=== PATIENT | male | born 1945 | race African-American/Black ===

== ENCOUNTER 2018-07-31 23:14 | Inpatient (IN) | payer OTHER ==
[~2018-07-31] VITALS: Ht 167.6 cm; Wt 68.0 kg
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
[2018-07-31 23:26] VITALS: BP 154/106
[2018-08-01 00:50] LABS: URINE BILIRUBIN NEGATIVE (Negative); URINE BLOOD NEGATIVE (Negative); URINE CLARITY CLEAR; URINE COLOR YELLOW; URINE GLUCOSE-RANDOM* NEGATIVE (Negative); URINE KETONES NEGATIVE (Negative); URINE LEUKOCYTES-REFLEX NEGATIVE (Negative); URINE NITRITE-REFLEX NEGATIVE (Negative); URINE PROTEIN (DIPSTICK) 2+ (Negative)
[2018-08-01 00:55] LABS: BACTERIA-REFLEX None Seen /HPF (None Seen); CASTS None Seen /LPF (None Seen); CRYSTALS None Seen /LPF (None Seen); MUCUS None Seen strn/LPF (None Seen); SQUAMOUS None Seen /LPF (0-3); URINE RBC None Seen /HPF (0-2); URINE WBC-REFLEX None Seen /HPF (0-5)
[2018-08-01 01:14] LABS: ABSOLUTE NEUTROPHILS 3.9 thou/uL (1.4-8.2); BASOPHILS 0.8 % (0.0-2.0); EOSINOPHILS 2.8 % (0.0-3.0); HEMATOCRIT 37.8 % (42.0-52.0); HEMOGLOBIN 12.6 gm/dL (14.0-18.0); MCHC 33.3 g/dL (28.0-37.0); MONOCYTES 4.7 % (1.0-8.0); PLATELET COUNT 158 thou/uL (150-400); POLYS 71.7 % (36.0-66.0); RBC 4.67 mil/uL (4.50-6.00); RDW 14.8 % (10.5-14.5); WBC 5.4 thou/uL (4.0-11.0)
[2018-08-01 01:28] LABS: ANION GAP 9 mmol/L (7-16); BUN 5 mg/dL (7-18); CALCIUM 8.9 mg/dL (8.5-10.1); CHLORIDE 106 mmol/L (98-107); CO2 30 mmol/L (21-32); CREATININE 0.9 mg/dL (0.7-1.3); GLUCOSE 130 mg/dL (74-106); POTASSIUM 3.3 mmol/L (3.5-5.1); SODIUM 145 mmol/L (136-145)
[2018-08-01 01:38] LABS: ALBUMIN 3.2 g/dL (3.4-5.0); DIRECT BILIRUBIN 0.3 mg/dL (<0.1-0.3); SGOT 13 U/L (15-37); SGPT 5 U/L (30-65); TOTAL BILIRUBIN 0.8 mg/dL (<0.1-1.0); TOTAL PROTEIN 6.8 g/dL (6.4-8.2); TROPONIN-I <0.06 ng/mL (<0.06)
--- NOTE | 2018-08-01 02:17 | NUR ---
PATIENT RETURNED FROM CT SCAN
[2018-08-01 03:28] VITALS: BP 150/72
[2018-08-01 04:05] VITALS: BP 176/56
[2018-08-01 04:42] VITALS: BP 131/71
--- NOTE | 2018-08-01 07:59 | NUR ---
PT WAS ADMITTED TO THE UNIT IN A FAIR CONDITION FROM THE ER.EDUCATION AND HX COMPLETED.MED REC NOT DONE.PT STATED THAT HE IS NOT ON ANY MED AND THAT HE HAS NOT BEEN TO A DOCTOR IN YEARS.PT WITH R SIDED WKNESS,LIKES FINGER FOOD.WOUNDS AND EXCORIATION ON HIS BOTTOM.IVF INFUSING ORDERED.AM NOTIFIED TO DO SKIN ASSESSMENT SINCE PT ARRIVED LATE TO THE UNIT.FALL PRECAUTIONS IN PLACE,CALL LIGHT WITHIN REACH.
--- NOTE | 2018-08-01 11:55 | EKG ---
[address] [address] ELECTROCARDIOGRAM REPORT Name: EWELINA JASSO Room #: 428-P ADM IN M.R.#: [id number] ������������������ Admission: 08/01/18 ������������������ Attend Phys: Armani Elizondo MD Discharge: ������������������ Date of : 44 Report #: [id number] ����������������������������������������������������������������� [id number] THIS REPORT FOR: //name// [facility] ED Test Date: 2018-08-01 Test Time: 00:18:30 Pat Name: EWELINA JASSO Department: Room: 428 Gender: M Electronics Department Manager: kenyetta esposito : 1945 Requested By: Juan Bates Order Number: [id number] MD: Kwesi Lewis Measurements Intervals [place] Rate: 76 P: [place]: QRS: -1 QRSD: 97 T: 259 QT: 520 QTc: 585 Interpretive Statements Sinus rhythm Nonspecific T-wave abnormalities Baseline wander in lead(s) V2 No previous ECG available for comparison Electronically Signed On 08-01-2018 11:54:52 CDT by Kwesi Lewis [email or web address] ��������������������������������������������� <ELECTRONICALLY SIGNED> ���������������������������������������� By: Kwesi Lewis MD ��������������������������������������������� 08/01/18 1154 0018 0018 MD NARENDRA Blair
[2018-08-01 19:51] VITALS: BP 141/66
--- NOTE | 2018-08-01 19:51 | NUR ---
WENT WITH DR MONTESINOS TO [facility]'S ROOM SHE LOOKED AT SKIN AND EXPLAINED ABOUT POLICE REPORT AND THAT CASE MANAGEMENT WOULD HELP HIM FIND PLACEMENT. PT WANTS TO GO BACK HOME. ORDERS INCLUDE QUOTE CLERK, PT OT, WOUND CARE PICTURES TAKEN. CONSULT DR BRANDO MONTESINOS EXPLAINED THAT CT OF CHEST SHOWED 3.0 XS 2.9 RIGHT UPPER LOBE MASS. ASKED IF HE WANTED TO HAVE TREATED AND HE AGREE.
--- NOTE | 2018-08-02 04:29 | NUR ---
ASSUMED CARE AT 1900, ASSESSMENT COMPLETED. PT WOULD NOT TALK TO STAFF DURING ASSESSMENT, EXCEPT TO SAY HE WANTED TO BE LEFT ALONE. WOULD NOT ANSWER QUESTIONS ABOUT PAIN OR NAUSEA, OR IF HE WAS ABLE TO USE HIS URINAL. NO S/S RESPIRATORY DISTRESS. REFUSED TURNS UNTIL ABOUT MIDNIGHT WHEN HE WAS SOILED, STAFF CHANGED CHUX AND CLEANED UP, PT DISAGREEABLE TO MOVEMENT; AFTERWORD, PT KEPT CALLING AND WANTING VARIOUS SHEETS OR PILLOWS MOVED, JUST TO UNDO IT IMMEDIATELY AFTER STAFF LEFT THE ROOM AND CALL AGAIN 5-10 MINUTES LATER. HS BLOOD SUGAR 110, NO INSULIN GIVEN, ASKED PT IF HE WANTED A SNACK BUT HE DID NOT ANSWER. NO OTHER CONCERNS, WILL CONTINUE TO MONITOR.
[2018-08-02 05:02] VITALS: BP 141/57
[2018-08-02 06:03] LABS: HEMATOCRIT 32.7 % (42.0-52.0); HEMOGLOBIN 10.9 gm/dL (14.0-18.0); MCH 27.1 pg (26.0-34.0); MCHC 33.4 g/dL (28.0-37.0); RBC 4.04 mil/uL (4.50-6.00); RDW 15.4 % (10.5-14.5)
[2018-08-02 06:10] LABS: CALCIUM 8.4 mg/dL (8.5-10.1); CREATININE 0.7 mg/dL (0.7-1.3); POTASSIUM 4.4 mmol/L (3.5-5.1)
[2018-08-02 07:43] VITALS: BP 141/51
--- NOTE | 2018-08-02 09:05 | NUR ---
A/O. VSS. DENIES PAIN. FLAT/IRRITABLE. DOES NOT WANT TO BE INTERRUPTED WITH MEALS. TOLERATIGN DIET. WILL CONT. TO MONITOR.
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
[2018-08-02 17:42] VITALS: BP 178/76
[2018-08-02 20:10] VITALS: BP 142/62
--- NOTE | 2018-08-03 02:58 | NUR ---
ASSESSMENT COMPLETED. PT IS IRRITABLE. NOT VERY COOPERATIVE WITH REPOSITIONING. PT IS EATING SNACKS WITH GOOD APPETITE. INCONTINENT. NICOLÁS HEELS OFFLOADED.CALLS APPROPRIATELY WITH NEEDS. SOME SPEECH SLURRING. PROGRESSING WITH POC TILL EOS.
[2018-08-03 05:00] VITALS: BP 134/62
[2018-08-03 07:15] VITALS: BP 132/64
--- NOTE | 2018-08-03 11:27 | NUR ---
PT A&OX2, CONFUSED. IV INTACT IN L FA. REQUIRES SETUP ASSIST TO EAT. IV INTACT IN L FA. PT UNABLE TO AMBULATE AT THIS TIME. CALLS OUT FOR NEEDS. INCONT OF B/B. WILL CONT POC.
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
[2018-08-03 16:00] VITALS: BP 128/54
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
[2018-08-03 22:10] VITALS: BP 128/54
[2018-08-04 02:40] VITALS: BP 130/63
[2018-08-04 08:48] VITALS: BP 135/54
--- NOTE | 2018-08-04 11:25 | NUR ---
PT A&OX2, NON AMBULATORY AT THIS TIME, IV INTACT IN L FA. PT SEEMS LESS AGITATED WITH CARE TODAY. TOLERATING PO WELL. CALL OUT FOR VOIDING NEEDS AND DRINKS FREQUENTLY. CALL LIGHT W/I REACH BED ALARM ON.
[2018-08-04 16:56] VITALS: BP 152/76
[2018-08-04 19:17] VITALS: BP 128/61
--- NOTE | 2018-08-05 04:04 | NUR ---
TURNED/REPOSITIONED WITH ASSIST, RESTLESS TONIGHT, KEPT ON UNDRESSING HIS GOWN, CONTINENT/INCONTINENT OF URINE, NO BM NOTED, NO ATTEMPT TO GET OUT OF BED, OFFERED PUDDING TONIGHT, NEEDING ASSISTANCE EATING AND DRINKING, SCDS ON, ON ROOM AIR, MONITORED.
[2018-08-05 04:50] VITALS: BP 134/49
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
--- NOTE | 2018-08-05 14:16 | NUR ---
CM MET WITH PT AT BEDSIDE THIS DAY AND DISCUSSED POSSIBLE POST ACUTE CARE STAY. PT INDICATED THAT REFERR[facility] COULD BE SENT [facility] FOR [facility] FOR POSSIBLE ADMISSION. REFERRAL WAS SENT. WOUND CARE AND PSYC WERE CONSULTED. SHANKAR SPOKE WITH SAMI HAHN WITH [facility] SHE INDICATED THAT SHE WOULD BE VISITING WITH PT TODAY. CM TO FOLLOW INDICATED WITH DC PLANNING.
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
[2018-08-05 16:13] VITALS: BP 127/59
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
--- NOTE | 2018-08-05 18:30 | NUR ---
PT ASSESSED AT START OF SHIFT. SPEAKS W/ HOARSE VOICED. DEPENDENT W/ ALL ADL'S. INCONTINENT AT TIMES. APPETITE WAS GOOD TODAY. NO C/O PAIN. TURNED Q2HRS. PSYCH CONSULT CALLED THIS AFTERNOON.
[2018-08-05 19:21] VITALS: BP 139/78
[2018-08-06 03:52] VITALS: BP 153/65
--- NOTE | 2018-08-06 05:22 | NUR ---
ASSUMED CARE OF PT @1900 PT LAYING DOWN IN BED. STATED PAIN IN HIS LEGS A 10. PAIN MED GIVEN FOR MANAGEMENT AND CONTROL. PT IS TOTAL CARE. PUDDING GIVEN AT NIGHT AND URINAL AT BEDSIDE. HOARSE VOICE WHEN COMMUNICATING, EYE CONTACT MAINTAINED. HOB ELEVATED AND FOOT OF BED ELEVATED. PRESSURE BOOTS INTACT AND BED IN LOW POSITION WILL CONTINUE TO MONITOR.
[2018-08-06 07:21] VITALS: BP 120/59
--- NOTE | 2018-08-06 13:15 | NUR ---
WOUND CARE FOLLOW UP; ROUNDING WITH DR BERE RIZVI AND AILEEN MOLD RELEASE WORKER. THERE ARE NO CHANGES SINCE YESTERDAY. CONTINUE PLAN OF CARE.
[2018-08-06] MEDS ORDERED: MIRALAX17 GM PO (15:57)
[2018-08-06] MEDS ORDERED: TYLENOL325 MG PO (15:57)
--- NOTE | 2018-08-06 16:02 | NUR ---
[facility]ED [facility]ERR[facility] SPOKE WITH [facility] AND THAT THEY CANNOT TAKE PT AT THAT FACILITY BUT COULD TAKE PT AT [facility]. DCP NOTIFED SW AND SHE SAID THAT WOULD BE FINE. NOTIFIED TO FINALIZE DC ORDERS. DCP TO FOLLOW.
--- NOTE | 2018-08-06 16:31 | NUR ---
PT HAS BEEN ACCEPTED FOR ADMISSION TO [facility] THIS DAY. CARE TEAM INDICATED HE IS MEDICALLY STABLE TO DISCHARGE. CM NOTIFIED SAMI HAHN WITH [facility] OF WHERE HE WILL BE GOING. CHART COPY ORDERED. ORDERS WERE FAXED. REPORT WAS CALLED. TRANSPORT ARRANGED FOR 4907-1120. PT IS AWARE AND AGREEABLE. NO OTHER CM INTERVENTION INDICATED. CASE CLOSED.
--- NOTE | 2018-08-06 19:30 | NUR ---
ASSUMED CARE OF PT AT 0700. ASSESSMENT CHARTED. ALERT TO PERSON AND PLACE. PT FUSSY AND IRRITABLE AT TIMES. HOARSENESS AND DIFFICULT FOR PT TO EXPRESS NEEDS. C/O GENERALIZED BACK AND LEG PAIN, TYLENOL GIVEN ORDERED. TOTAL CARE, FEEDER AT MEALTIMES. PRAFO BOOTS IN PLACE, Q2H TURNS. RIGHT HEEL DTI AND SACRAL WOUNDS, CARE GIVEN ORDERED. NEW D/C ORDERS TO [facility]. REPORT CALLED TO FRANCIA. IV REMOVED, NO BLEEDING NOTED. MEDICAL TRANSPORT TO TAKE PT VIA CART. [facility] S[facility] WITH [facility]. PT LEFT IN STABLE CONDITION AT 18:30.
== END 2018-08-06 18:40 | DRG 923 ==
LOC: ER 23:14 → EROBS 08-01 02:52 → 4E 08-01 02:52 → EROBS 08-01 04:43 → 4E 08-01 05:23
PROVIDERS: Emergency Medicine; Nurse Practitioner Family; ADMIT Internal Medicine
DX: T76.01XA Adult neglect or abandonment, suspected, initial encounter (principal); E87.2 Acidosis; E44.0 Moderate protein-calorie malnutrition; I69.351 Hemiplegia and hemiparesis following cerebral infarction affecting right dominant side; B35.1 Tinea unguium; E11.9 Type 2 diabetes mellitus without complications; I10 Essential (primary) hypertension; R91.8 Other nonspecific abnormal finding of lung field; M24.50 Contracture, unspecified joint; E87.6 Hypokalemia; L89.152 Pressure ulcer of sacral region, stage 2; Z68.24 Body mass index [BMI] 24.0-24.9, adult
CPT/HCPCS: 10783

== ENCOUNTER 2019-02-11 10:34 | Inpatient (IN) | payer OTHER ==
[~2019-02-11] VITALS: Ht 182.9 cm; Wt 57.9 kg
[2019-02-11] VITALS (30 sets, daily range): BP systolic 83–139; BP diastolic 22–80
[~2019-02-11 10:34] MED LIST: MIRALAX17 GM PO; TYLENOL325 MG PO
[2019-02-11 11:29] LABS: ABSOLUTE NEUTROPHILS 9.8 thou/uL (1.4-8.2); BASOPHILS 0.8 % (0.0-2.0); EOSINOPHILS 0.4 % (0.0-3.0); HEMATOCRIT 28.4 % (42.0-52.0); HEMOGLOBIN 9.2 gm/dL (14.0-18.0); LYMPHOCYTES 8.9 % (24.0-44.0); MCH 25.5 pg (26.0-34.0); MCHC 32.5 g/dL (28.0-37.0); MCV 78.6 fL (80.0-100.0); MONOCYTES 5.1 % (1.0-8.0); PLATELET COUNT 334 thou/uL (150-400); POLYS 84.8 % (36.0-66.0); RBC 3.61 mil/uL (4.50-6.00); WBC 11.6 thou/uL (4.0-11.0)
[2019-02-11 11:36] LABS: URINE BILIRUBIN NEGATIVE (Negative); URINE BLOOD 1+ (Negative); URINE CLARITY CLOUDY; URINE COLOR YELLOW; URINE GLUCOSE-RANDOM* NEGATIVE (Negative); URINE KETONES NEGATIVE (Negative); URINE PROTEIN (DIPSTICK) NEGATIVE (Negative); URINE UROBILINOGEN 0.2 E.U./dl (0.2-1.0)
[2019-02-11 11:40] LABS: URINE LEUKOCYTES-REFLEX 3+ (Negative); URINE NITRITE-REFLEX POSITIVE (Negative)
[2019-02-11 11:44] LABS: ALBUMIN 2.6 g/dL (3.4-5.0); CREATININE 0.9 mg/dL (0.7-1.3); DIRECT BILIRUBIN 0.2 mg/dL (<0.1-0.2); POTASSIUM 4.4 mmol/L (3.5-5.1); TOTAL BILIRUBIN 0.5 mg/dL (<0.1-1.0); TOTAL PROTEIN 6.9 g/dL (6.4-8.2)
[2019-02-11 11:54] LABS: CALCIUM 9.7 mg/dL (8.5-10.1)
[2019-02-11 13:30] LABS: SQUAMOUS 0-3 Few /LPF (0-3)
[2019-02-11 13:31] LABS: AMORPHOUS URATES Moderate /LPF (None Seen); BACTERIA-REFLEX >30 Many /HPF (None Seen); CASTS None Seen /LPF (None Seen); URINE RBC 3-10 Few /HPF (0-2); URINE WBC-REFLEX 6-15 Few /HPF (0-5)
--- NOTE | 2019-02-11 15:06 | EKG ---
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 : 1945 Requested By: Candy Gonzalez Order Number: [id number] MD: Erick Metcalf Measurements Intervals [place] Rate: 123 P: 51 FL: 143 QRS: 52 QRSD: 81 T: 80 QT: 303 QTc: 434 Interpretive Statements Sinus tachycardia Atrial premature complexes Artifact in lead(s) I,II,III,aVR,aVL,aVF,V1,V2,V3,V4,V5,V6 Compared to ECG 08/01/2018 00:18:30 Atrial premature complex(es) now present Sinus rhythm no longer present Electronically Signed On 02-11-2019 15:05:41 CLOSET BUILDER by Erick Metcalf [email or web address] <ELECTRONICALLY SIGNED> By: Erick Metcalf MD 02/11/19 1505 [id number] Erick Metcalf MD /EPI
--- NOTE | 2019-02-11 15:19 | NUR ---
CONSULTED TO PLACE A LINE IN ER FOR ACCESS AND PRESSORS. ORDER AND CONSENT NOTED. THE PROCEDURE WELL RISKS AND BENIFITS WERE DISCUSSED AND HE VERBALIZED UNDERSTANDING. NOTED HX OF A RIGHT CVA. PATIENT IS CONTRACTED BUT UNABLE TO FIND A SUITABLE VEIN IN THE NECK FOR PLACEMENT. AFTER CAREFUL MANIPULATION I WAS ABLE TO EXTEND THE LEFT ARM ENOUGH TO PLACE A LEFT UPPER ARM PICC IN THE BASILIC AFTER A BEDSIDE TIMEOUT. LINE PLACED PER PROTOCOL. TRIMMED TO 45CM AND ADVANCED WITHOUT DIFFICULTY. A STAT CHEST XRAY WAS ORDERED FOR CONFIRMATION
--- NOTE | 2019-02-11 19:36 | NUR ---
Report was called by [place] JACOBS in the ED. Nurse verbalized understanding. PT arrived to ICU via bed at 1602. PT was settled into room 246. VSS. Admission completed. See assessment for details. Levophed was noted at 10 mcs/min. Unable to sign consents due to cognitive status. No family present. ED nurse attempted to reach POA but was unsuccessful. Nurse will continue to monitor.
--- NOTE | 2019-02-11 19:49 | NUR ---
Reviewed and agree with Itzel Ramos RNhandhole machine operator.
[2019-02-12] VITALS (47 sets, daily range): BP systolic 11–116; BP diastolic 40–72
[2019-02-12 05:49] LABS: HEMATOCRIT 24.1 % (42.0-52.0); HEMOGLOBIN 7.9 gm/dL (14.0-18.0); MCH 26.3 pg (26.0-34.0); MCHC 32.6 g/dL (28.0-37.0); MCV 80.7 fL (80.0-100.0); RBC 2.99 mil/uL (4.50-6.00); RDW 15.2 % (10.5-14.5); WBC 10.1 thou/uL (4.0-11.0)
[2019-02-12 06:02] LABS: CALCIUM 9.3 mg/dL (8.5-10.1); CREATININE 0.8 mg/dL (0.7-1.3)
[2019-02-12 06:12] LABS: POTASSIUM 3.3 mmol/L (3.5-5.1)
--- NOTE | 2019-02-12 10:43 | NUR ---
PT's daughter, Leatha, who is also PT's POA called for an update on her father. Nurse provided update and Leatha verbalized understanding. She told nursing staff that she has been trying to get her father moved from [facility] to [facility] for months. She stated that [facility] does not have the staff needed to provide appropriate wound care for her father. Nurse verbalized understanding and told Leatha that case management will be notified of her wishes to see if any assistance can be offered. She thanked staff and said she will try to visit her father today. Nurse will follow up with case mgmt.
--- NOTE | 2019-02-12 12:52 | NUR ---
Dr. Lerma on unit to see PT. He ordered to dc IVF and to transfer PT out of ICU to the med surg floor. Charge nurse was notified. Nurse will continue to monitor.
--- NOTE | 2019-02-12 18:36 | NUR ---
Report given to ARLENE Nelson on [facility]/Surg.
--- NOTE | 2019-02-12 19:15 | NUR ---
TRANSFERRED TO [facility]/SURG ROOM #463 PER BED BY RN.
[2019-02-12 22:57] LABS: CALCIUM 8.7 mg/dL (8.5-10.1); CREATININE 0.7 mg/dL (0.7-1.3); POTASSIUM 3.9 mmol/L (3.5-5.1)
[2019-02-13 05:23] LABS: HEMATOCRIT 21.6 % (42.0-52.0); HEMOGLOBIN 6.9 gm/dL (14.0-18.0); MCH 25.9 pg (26.0-34.0); WBC 7.3 thou/uL (4.0-11.0)
[2019-02-13 05:25] LABS: RBC 2.66 mil/uL (4.50-6.00); RDW 15.4 % (10.5-14.5)
[2019-02-13 05:26] LABS: CALCIUM 7.9 mg/dL (8.5-10.1); CREATININE 0.6 mg/dL (0.7-1.3); MAGNESIUM 1.5 mg/dL (1.8-2.4); POTASSIUM 3.6 mmol/L (3.5-5.1)
--- NOTE | 2019-02-13 06:21 | NUR ---
Transfer pt from the ICU. pt arrived on unit at about 1950. pt a&ox3. pt came up with a rectal tube which is still in place and a betancourt cath which was supposed to be d/c on 02/12. this nurse wanted to d/c betancourt but pt stated that he was having trouble urinating and would like to leave betancourt in. nurse left betancourt in and will let doctor reassess pt during the day. pt is a q2 turn. pt has multiple wound in his body. dressing to right hip changed. pressure boots on for offloading. no s/s of distress. will cont to monitor
[2019-02-13 09:14] VITALS: BP 128/60
[2019-02-13 11:14] LABS: HEMATOCRIT 23.8 % (42.0-52.0); HEMOGLOBIN 7.6 gm/dL (14.0-18.0)
[2019-02-13 15:22] VITALS: BP 111/54
--- NOTE | 2019-02-13 19:31 | NUR ---
ASSUMED CARE AROUND 0715. AXOX2. FLAT. REFUSED EATING AND DRINKING. ACCEPTING MEDS AND ORANGE JUICE AT THIS TIME. ALL WOUND DRESSING CHANGED. NEW STAT LOCK FOR NOBLES AND FECAL MANAGEMENT BAG CHANGED DURING SHIFT. CONSULTED FOR REALISTIC GOAL OF CARE AT THIS TIME. PT WAS KEEP SAYING HE WANTS TO GO HOME AND SHAKING HIS HEAD. PER , LEAVE THE NOBLES IN FOR NOW FOR PRESSURE INJURIES ON HIPS AND HAVING LOOSE STOOLS THRU RECTAL TUBE. CARE TRANSFERRED TO INCOMING RN AT THIS TIME.
[2019-02-13 19:40] VITALS: BP 106/56
--- NOTE | 2019-02-14 02:08 | NUR ---
PT CARE ASSUMED AT 1915 WITH PT IN BED WATCHING TV.PT IS A/O X2.PT HAS A RECTAL TUBE IN PLACE AND A NOBLES CATHETER.PT HAS MULTIPLE WOUNDS AND DRESSING WAS DONE YESTERDAY.PT IS Q2 TURN AND BEDREST.PT HAS RT HEMIPARESIS.PT IS ACCUCHECK CHECK ACHS.WILL CONTINUE TO MONITOR POC
[2019-02-14 08:01] VITALS: BP 134/50
--- NOTE | 2019-02-14 10:25 | NUR ---
CALL RECEIVED FROM [facility] LIA[facility]. SOFI STATES PATIENT IS A RESIDENT AT [facility]. SOFI REQUESTING CLINICAL INFORMATION. FAXED TO HER. PLAN IS FOR PATIENT TO RETURN TO [facility] ONCE MEDICALLY READY. UNIT SW NOTIFIED. FOLLOWING.
[2019-02-14] MEDS ORDERED: KEFLEX500 M1 PO (12:22)
--- NOTE | 2019-02-14 15:10 | NUR ---
PT ADMITTED RELATED TO UTI/DEHYDRATION/SEPSIS. CM REVIEWED CHART AND SPOKE WITH CARE TEAM. CM MET WITH PT AT BEDSIDE THIS DAY. PT IS A TO SELF. PT CONFIRED THAT HE RESIDES AT [facility]. CM NOTIFIED FACILITY AND CLINICAL UPDATED WERE SENT TO THEM. PHYSICIAN INDICATED THAT PT IS MEDICALLY STABLE TO RETURN THIS DAY. CM CALLED PT'S DTR AND SHE INDICATED THAT SHE WOULD PREFER FOR PT TO GO TO [facility] SHE IS A MED TECH THERE. CM NOTIFIED LIAISON AND SHE INDICATED THAT SHE HAD CONTACTED [facility] [place] AND THAT THEY WOULD TRY TO GET PT OVER THERE SOON A A BED BECOMES AVAIABLE. CM NOTIFIED PT'S DTR AND SHE IS AGREEABLE WITH THIS. [facility] TRANSPORT ARRANGED FOR 1400. CHART COPY MADE. ORDERS FAXED. REPORT TO BE CALLED TO .
--- NOTE | 2019-02-14 16:02 | NUR ---
ASSUMED CARE AT 0700, ALERT TO SELF, WOUND CARE DONE. PRN PAIN MEDS GIVEN. DC ORDER RECEIVED. PICC LINE WAS TAKEN OUT. WOUND PICTURES TAKEN. LEFT WITH TRANSPORTATION AT 1600.
--- NOTE | 2019-02-17 08:13 | HC ---
[facility] [place] [address] CONSULTATION Name: JASSOEWELINA Room #: 463-P [facility] IN M.R.#: [id number] Admission: 02/11/19 Attend Phys: Sonny Lerma MD Discharge: 02/14/19 Date of : 43 Report #: [id number] THIS REPORT FOR: //name// CC: Sonny Ballesteros Akkulugari DATE OF SERVICE: 02/14/2019 CHIEF COMPLAINT: Multiple pressure ulcerations. HISTORY OF PRESENT ILLNESS: This is a 73-year-old male patient from a care home and metastatic lung cancer who was admitted with fever and deconditioning. He has been belligerent and refusing care, apparently is uncooperative with my seeing him today. PAST MEDICAL HISTORY: Obtained from the patient's medical record is significant for admission diagnosis of pyelonephritis, metastatic lung cancer, sepsis, and oral thrush. MEDICATIONS: Noted to be Tylenol and MiraLax. ALLERGIES: No known drug allergies. SOCIAL HISTORY: Unknown. FAMILY HISTORY: Unknown. REVIEW OF SYSTEMS: Unobtainable due to the patient's unwillingness to cooperate possibly some underlying dementia. PHYSICAL EXAMINATION: VITAL SIGNS: At this time include temperature 37.0, pulse 115, respiratory rate 18, blood pressure 134/50, pulse oximetry 95%. GENERAL: This is a somewhat thin, almost cachectic appearing male patient who appears to be in no obvious distress, but is belligerent and is fighting with me with any attempt to evaluate him. HEENT: Head appears normocephalic. Nose is clear. NECK: Supple. LUNGS: Diminished. ABDOMEN: Soft. EXTREMITIES: Examination of the pelvic region as well as lower extremities demonstrates what appears to be a deep tissue injury to the left pretibial region, unstageable pressure ulcer to the right buttock, unstageable pressure ulcer to the left medial heel, unstageable pressure ulcer to the right lateral heel, stage 3 pressure ulceration to the left buttock and a deep tissue injury to the right medial knee. He appears to have limited motion on the right side [address] [address] CONSULTATION Name: JASSOSURENDRAEWELINA Room #: 463-P [facility] IN M.R.#: [id number] Admission: 02/11/19 Attend Phys: Sonny Lerma MD Discharge: 02/14/19 Date of : 43 Report #: [id number] neurologically. CLINICAL IMPRESSION: 1. Unstageable pressure ulcerations to bilateral buttocks, left medial heel and right lateral heel. 2. Stage 3 pressure ulceration to the left buttock. 3. Deep tissue injury to the left pretibial region. 4. Deep tissue injury to the right medial knee. 5. Moderate protein-calorie malnutrition with an albumin of 3.6. 6. History of cerebrovascular accident with right-sided weakness. 7. 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 8. Metastatic lung cancer. RECOMMENDATIONS: At this point in time, I think that conservative care would be appropriate. I do not think he would be an appropriate candidate for an operative debridement due to his significant medical comorbidities and overall state of health. We will recommend topical Betadine or skin prep to his left heel, Xeroform and ABD to the right buttock, Bordered foam to the left buttock, right heel and right knee. He will need a low air loss mattress with q. 2 hour turning and positioning, PRAFO boots or heel protectors bilaterally. We will recommend continuation of current medications and aggressive nutritional support. I appreciate being asked to see the patient in consultation. <ELECTRONICALLY SIGNED> By: Anthony Cash MD 02/17/19 0813 1612 0155 Anthony Cash MD /nt
== END 2019-02-14 16:23 | DRG 871 ==
LOC: ER 10:34 → ICU 14:24 → 4W 14:24 → EROBS 14:24 → ICU 15:49 → 4W 02-12 20:27
PROVIDERS: Emergency Medicine; ADMIT Hospitalist
DX: A41.9 Sepsis, unspecified organism (principal); L89.323 Pressure ulcer of left buttock, stage 3; R65.21 Severe sepsis with septic shock; N10 Acute pyelonephritis; B37.0 Candidal stomatitis; C34.90 Malignant neoplasm of unspecified part of unspecified bronchus or lung; E44.0 Moderate protein-calorie malnutrition; I69.351 Hemiplegia and hemiparesis following cerebral infarction affecting right dominant side; Z68.1 Body mass index [BMI] 19.9 or less, adult; L89.159 Pressure ulcer of sacral region, unspecified stage; I10 Essential (primary) hypertension; E86.0 Dehydration; L89.310 Pressure ulcer of right buttock, unstageable; L89.620 Pressure ulcer of left heel, unstageable; L89.610 Pressure ulcer of right heel, unstageable; M24.552 Contracture, left hip; M24.551 Contracture, right hip; M24.562 Contracture, left knee; D50.0 Iron deficiency anemia secondary to blood loss (chronic); M24.561 Contracture, right knee; I95.9 Hypotension, unspecified; B96.20 Unspecified Escherichia coli [E. coli] as the cause of diseases classified elsewhere; Z85.118 Personal history of other malignant neoplasm of bronchus and lung; Z79.899 Other long term (current) drug therapy
CPT/HCPCS: 10047; 10078; 27000